=== PATIENT | male | born 1990 ===

== ENCOUNTER 2017-11-18 14:49 | Emergency (ER) | payer OTHER ==
[2017-11-18 14:58] VITALS: BP 140/87; PULSE 87; RESP 18; TEMP 99; O2SAT 99
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
--- NOTE | 2017-11-18 16:12 | RAD ---
Date of service: 11/18/2017 PROCEDURE: Cervical Spine Radiographs. HISTORY: Pain. COMPARISON: None. FINDINGS: BONES: Alignment maintained. No fracture. Dens Intact. DISC SPACES: Normal. SOFT TISSUES: Normal. No prevertebral soft tissue swelling. OTHER FINDINGS: None. IMPRESSION: Normal cervical spine radiographs
== END 2017-11-18 16:46 | disposition home or self-care (01) ==
LOC: H.ER 14:49
DX: S46.912A Strain of unspecified muscle, fascia and tendon at shoulder and upper arm level, left arm, initial encounter (principal); S16.1XXA Strain of muscle, fascia and tendon at neck level, initial encounter; S00.531A Contusion of lip, initial encounter; V43.52XA Car driver injured in collision with other type car in traffic accident, initial encounter; Y92.410 Unspecified street and highway as the place of occurrence of the external cause